=== PATIENT | male | born 1980 | race Two or more races ===

== ENCOUNTER 2025-01-24 09:15 | Emergency (ER) | payer SELFPAY ==
[~2025-01-24] VITALS: Ht 182.9 cm; Wt 101.0 kg
[2025-01-24 09:18] VITALS: BP 131/87; PULSE 87; RESP 16; TEMP 99.1; O2SAT 97
== END 2025-01-24 11:43 | disposition left against medical advice (07) ==
LOC: ER 09:15
DX: K62.89 Other specified diseases of anus and rectum (principal); Z53.21 Procedure and treatment not carried out due to patient leaving prior to being seen by health care provider

== ENCOUNTER 2025-01-25 07:21 | Emergency (ER) | payer MEDICAID, OTHER ==
[~2025-01-25] VITALS: Ht 182.9 cm; Wt 100.7 kg
[2025-01-25 07:23] VITALS: BP 145/87; PULSE 73; RESP 16; TEMP 98.5; O2SAT 97
--- NOTE | 2025-01-25 07:57 | ED.PDOC ---
GI ASSESSMENT HPI Comments This is a 44-year-old male who presents to the ED with a chief complaint of constipation for X4 days. Patient denies any medical history or this happening before. Patient reports taking laxatives and suppositories, with no relief. Denies fevers chills nausea vomiting Denies abdominal pain Denies unintentional weight loss Denies family history of colon cancer Denies blood in the stool Denies taking narcotics or iron supplements Denies a history of hypothyroidism Chief Complaint: Constipation Time Seen by MD: 07:33 Reviewed Notes: Nurses Notes, Medications, Allergies Allergies: Coded Allergies: NO KNOWN ALLERGIES (Unverified , 01/24/25) Information Source: Patient Mode of Arrival: Ambulatory Timing: Days Duration: Since onset Prehospital treatment: None Stool: Minimal Severity: Moderate Recent: None Pain Location: None Associated sign and symptoms: Constipation Past Medical History PAST MEDICAL HISTORY: Denies Surgical History: Denies all surgeries Family History Family History: Reviewed,noncontributory to illness, No family hx of Cancer, No family hx of DM, No family hx of Heart mercy, No family hx of HTN, No family hx ofKidney mercy, No family hx of Liver mercy, No family hx of Lung mercy, No family hx of Stroke Social History Smoker: Non-Smoker Alcohol: Denies ETOH Use Drugs: Denies Drug Use Lives In: Home Constitutional: denies: chills, diaphoresis, fatigue, fever, malaise, sweats, weakness, others EENTM: denies: blurred vision, double vision, ear bleeding, ear discharge, ear drainage, ear pain, ear ringing, eye pain, eye redness, hearing loss, mouth pain, mouth swelling, nasal discharge, nose bleeding, nose congestion, nose pain, photophobia, tearing, throat pain, throat swelling, voice changes, others Respiratory: denies: cough, hemoptysis, orthopnea, SOB at rest, shortness of breath, SOB with excertion, stridor, wheezing, others Cardiovascular: denies: chest pain, dizzy spells, diaphoresis, Dyspnea on exertion, edema, irregular heart beat, left arm pain, lightheadedness, palpitations, PND, syncope, others Gastrointestinal: reports: constipated; denies: abdomen distended, abdominal pain, blood streaked bowels, diarrhea, dysphagia, difficulty swallowing, hematemesis, melena, nausea, poor appetite, poor fluid intake, rectal bleeding, rectal pain, vomiting, others Genitourinary: denies: burning, dysuria, flank pain, frequency, hematuria, incontinence, penile discharge, penile sore, pain, testicle pain, testicle swelling, urgency, others Neurological: denies: dizziness, fainting, headache, left sided numbness, left sided weakness, numbness, paresthesia, pre-existing deficit, right sided numbness, right sided weakness, seizure, speech problems, tingling, tremors, weakness, others Musculoskeletal: denies: back pain, gout, joint pain, joint swelling, muscle pain, muscle stiffness, neck pain, others Integumetry: denies: bruises, change in color, change in hair/nails, dryness, laceration, lesions, lumps, rash, wounds, others Allergic/Immunocompromised: denies: Difficulty Healing, Frequent Infections, Hives, Itching, others Hematologic/Lymphatic: denies: anemia, blood clots, easy bleeding, easy bruising, swollen glands, others Endocrine: denies: excessive hunger, excessive sweating, excessive thirst, excessive urination, flushing, intolerance to cold, intolerance to heat, unexplained weight gain, unexplained weight loss, others Psychiatric: denies: anxiety, bipolar disorder, depression, hopeless, panic disorder, schizophrenia, sleepless, suicidal, others All Other Systems: Reviewed and Negative Physical Exam General Appearance: Moderate Distress, Normal HEENT: Normal ENT Inspection, Pharynx Normal, TMs Normal Neck: Full Range of Motion, Non-Tender, Normal, Normal Inspection Respiratory: Chest Non-Tender, Lungs Clear, No Accessory Muscle Use, No Respiratory Distress, Normal Breath Sounds Cardiovascular: No Edema, No JVD, No Murmur, No Gallop, Normal Peripheral Pulses, Regular Rate/Rhythm Breast Exam: Deferred Gastrointestinal: Distended, No Organomegaly, Non Tender, No Pulsatile Mass Genitalia: Deferred Pelvic: Deferred Rectal: Other (no erythema, no streaking, no fluxuence around the buttock, rectal tone intact, no pain to the perineum) Extremities: No calf tenderness, Normal capillary refill, Normal inspection, Normal range of motion, Non-tender, No pedal edema Musculoskeletal : Apperance: Normal Neurologic: Alert, lead driver II-XII nml as Tested, No Motor Deficits, Normal Affect, Normal Mood, No Sensory Deficits Cerebellar Function: Normal Reflexes: Normal Skin: Dry, Normal Color, Warm Lymphatic: No Adenopathy Was a procedure done? Was a procedure done?: No GI differential Dx Differential Diagnosis: Constipation, Gastroenteritis, Dehydration, Food Poisoning, Bacterial, Parasitic, Viral X-Ray, Labs, Meds, VS Vital Signs Date Time Temp Pulse Resp B/P (MAP) Pulse Ox O2 Delivery O2 Flow Rate FiO2 01/25/25 07:23 98.5 73 16 145/87 97 98.5 Lab Test 01/25/25 08:54 Range/Units White Blood Count 15.9 H 4.4-10.8 10^3/uL Red Blood Count 5.09 4.5-5.90 10^6/uL Hemoglobin 15.3 13.5-17.5 g/dL Hematocrit 44.8 41.0-53.0 % Mean Corpuscular Volume 88.1 80.0-100.0 fL Mean Corpuscular Hemoglobin 30.0 28.0-32.0 pg Mean Corpuscular Hemoglobin Concent 34.0 32.0-36.0 g/dL Red Cell Distribution Width 14.7 H 11.8-14.3 % Platelet Count 256 140-450 10^3/uL Mean Platelet Volume 8.5 6.9-10.8 fL Neutrophils (%) (Auto) 73.2 37.0-80.0 % Lymphocytes (%) (Auto) 15.7 10.0-50.0 % Monocytes (%) (Auto) 10.6 0.0-12.0 % Eosinophils (%) (Auto) 0.2 0.0-7.0 % Basophils (%) (Auto) 0.3 0.0-2.0 % Neutrophils # (Auto) 11.6 H 1.6-8.6 10 ^3/uL Lymphocytes # (Auto) 2.5 0.4-5.4 10 ^3/uL Monocytes # (Auto) 1.7 H 0-1.3 10 ^3/uL Eosinophils # (Auto) 0 0-0.8 10 ^3/uL Basophils # (Auto) 0.1 0-0.2 10 ^3/uL Nucleated Red Blood Cells 0.0 % Sodium Level 140 136-145 mmol/L Potassium Level 4.1 3.5-5.1 mmol/L Chloride Level 109 H 98-107 mmol/L Carbon Dioxide Level 26 20-31 mmol/L Anion Gap 5 5-15 Blood Urea Nitrogen 7 L 9-23 mg/dL Creatinine 1.44 H 0.700-1.30 mg/dL Glomerular Filtration Rate Calc 62 >90 mL/min BUN/Creatinine Ratio 4.9 L 10.0-20.0 Serum Glucose 107 H 74-106 mg/dL Calcium Level 9.7 8.7-10.4 mg/dL Lipase 28 12-53 U/L Current Medications Medications (Trade) Dose Ordered Sig/Lynnette Route Start Time Stop Time Status Last Admin Lactulose 30 ml ONCE ONCE PO 01/25/25 08:45 01/25/25 08:46 DC 01/25/25 08:48 [place] [address] Ph: [phone] DIAGNOSTIC IMAGING Diagnostic Imaging Report : [id number] Signed PATIENT: TREE TIRADO ACCT: [id number] UNIT: [id number] : 1980 LOC: ER ROOM / BED: / AGE / SEX: 44 / M ADM STATUS: REG ER SERVICE [id number] ORDERING PHYSICIAN: MALIK DAVIS NP PROCEDURE(s): ABPL - CT AB PEL WO CON-NO ORAL OR IV REASON: Constipation and rectal pain ORDER NUMBER(s): [id number], ACCESSION NUMBER(s): [id number] CLINICAL INFORMATION: 44 years old, Male; Constipation and rectal pain. TECHNIQUE: Axial CT images of the abdomen and pelvis were obtained without IV contrast. Coronal and sagittal reformatted images were obtained, reviewed, and stored. Evaluation of the parenchymal organs is limited without IV contrast. Evaluation of the bowel and mesentery is limited without oral contrast. All CT scans at this medical facility are performed using dose modulation techniques as appropriate to a performed exam including the following: Automated exposure control was utilized; adjustment of the MA and/or KV according to patient size; and use of iterative reconstruction technique. CTDIvol = 11.85 mGy DLP = 655.97 mGy-cm COMPARISON: None FINDINGS: Lung bases: Lung bases are clear. Liver: Multiple low-density lesions are seen in the liver, the largest of which are fluid density and likely benign cysts. The smaller lesions are also likely cysts, but too small to characterize. Biliary: No calcified gallstones or biliary ductal dilatation. Spleen: Unremarkable. Pancreas: Grossly unremarkable in its noncontrast enhanced appearance. Adrenal glands: Unremarkable. No mass. Kidneys: No hydronephrosis. No renal or ureteral calculi. Aorta/Vascular: Moderate atherosclerotic calcification. No abdominal aortic aneurysm. Retroperitoneum: No mass or lymphadenopathy. Bowel/mesentery: No small bowel obstruction. No free air or free fluid. Appendix is visualized and appears unremarkable. There is mild wall thickening and adjacent vascular engorgement involving the cecum, ascending colon, hepatic flexure, and transverse colon, suspected colitis in the appropriate clinical setting. There are also areas of fatty replacement in the wall of the colon, which may be sequela of previous inflammation. There is moderate stool in the more distal portions of the colon and a few scattered colonic diverticula without adjacent inflammatory changes to suggest diverticulitis. Pelvic organs: Grossly unremarkable. Bladder: Unremarkable. No mass. Abdominal wall: Small fat containing umbilical hernia. Bones: No acute fracture or suspicious intraosseous lesion. IMPRESSION: 1. Findings suggesting colitis involving the cecum, ascending colon, hepatic flexure, and transverse colon as described above. May be infectious or infl ammatory in nature. Correlate with clinical findings. 2. Additional nonacute findings as detailed above. X-Ray, Labs, Meds, VS Comment This is a 44-year-old male who presents to the ED with a chief complaint of constipation for X4 days. Patient arrives alert and oriented, ABC's intact, afebrile, vital signs stable, saturating well in room air Peripheral IV insertion+ labs were ordered. CBC was ordered to exclude anemia, blood loss, or infection. BMP was ordered to exclude electrolyte abnormalities, renal failure, dehydratio n, hyperglycemia. Additional Lipase was ordered. Diagnostic imaging, ABD CT, ordered by me and results interpreted by radiology : Colitis involving the cecum, ascending colon, hepatic flexure, and transverse colon as described above. May be infectious or inflammatory in nature. Correlate with clinical findings. This patient has elected to leave against medical advice. In my opinion, the patient has capacity to leave AMA. The patient is clinically sober, free from distracting injury, appears to have intact insight, judgment, and reason; therefore, the patient has the capacity to make decisions. I explained to the patient that these symptoms may represent a serious underlying medical condition and the patient verbalized understanding of my concerns and understands the consequences of leaving without complete evaluation. I had a discussion with the patient about their workup and results, and informed the patient what the next step in diagnosis and treatment would be, and they verbalized understanding of this as well. I explained the risks of leaving without further workup or treatment, which included reasonably foreseeable complications such as , serious injury, prolonged illness, and permanent disability. I discussed the specific benefits of additional treatment and also offered alternatives to departing AMA, such as assigning the patient a different provider or an alternate workup pathway. However, the patient declined and insisted on leaving against medical advice. I answered all of the patient's questions about their condition and I asked them to follow up with their PCP as soon as possible or return to this ER for further evaluation whenever they choose. Patient voiced understanding. Images Reviewed?: Images reviewed and evaluated by me Time of 1ST Reevaluation: 08:34 Reevaluation 1ST: Unchanged Patient Education/Counseling: Diagnosis, Treatment, Need For Follow Up Family Education/Counseling: No Family Present Medical Screening: No EMC Exist At This Time SEPSIS Sepsis Screen Date sepsis recognized/suspect: Jan 25, 2025 Time Sepsis recognized/suspect: 722 Recent Procedure: No On Antibiotic Therapy: No Respiratory Rate >20: No Heart Rate >90: No Temp<36 C (96.8 F) or >38.3 C: No SBP <90 or MAP <65 mmHG: No New Acute Mental Status Change: No Is the patient on CPAP, BIPAP,: No Physician Orders Ct Ab Pel Wo Con-No Oral Or Iv (01/25/25 07:38) Vital Signs Date Time Temp Pulse Resp B/P (MAP) Pulse Ox O2 Delivery O2 Flow Rate FiO2 01/25/25 07:23 98.5 73 16 145/87 97 98.5 Laboratory Tests Test 01/25/25 08:54 White Blood Count 15.9 10^3/uL (4.4-10.8) H Medications Medications Dose Ordered Sig/Lynnette Route Start Time Stop Time Status Last Admin Dose Admin Lactulose 30 ml ONCE ONCE PO 01/25/25 08:45 01/25/25 08:46 DC 01/25/25 08:48 Departure 1 Departure Time of Disposition: 09:53 Impression: Primary Impression: Left against medical advice Disposition: 07 LEFT AGAINST MEDICAL ADVICE Condition: Poor Additional Instructions: Follow up with PCP in 1-2 days. Take medications as prescribed. Return to the ED for any new or worsening symptoms. Discharged With: Self Critical Care Note Critical Care Time?: No Stability Stability form required: No Heart Score Heart Score: Heart Score Response (Comments) Value History N/A 0 EKG N/A 0 Age N/A 0 Risk Factors N/A 0 Troponin N/A 0 Total 0 I personally scribed for MALIK DAVIS NP ([email or web address]) on 01/25/25 at 07:57. Electronically submitted by Diamante Friend ([email or web address]). I personally scribed for MALIK DAVIS NP ([email or web address]) on 01/25/25 at 08:03. Electronically submitted by Diamante Friend ([email or web address]). I personally scribed for MALIK DAVIS NP ([email or web address]) on 01/25/25 at 08:49. Electronically submitted by Diamante Friend ([email or web address]). MALIK DAVIS NP Jan 25, 2025 07:57
--- NOTE | 2025-01-25 08:40 | DVH ---
CLINICAL INFORMATION: 44 years old, Male; Constipation and rectal pain. TECHNIQUE: Axial CT images of the abdomen and pelvis were obtained without IV contrast. Coronal and s agittal reformatted images were obtained, reviewed, and stored. Evaluation of the parenchymal organs is limited without IV contrast. Evaluation of the bowel and mesentery is limited without oral contras t. All CT scans at this medical facility are performed using dose modulation techniques as appropriat e to a performed exam including the following: Automated exposure control was utilized; adjustment of the MA and/or KV according to patient size; and use of iterative reconstruction technique. CTDIvol = 11.85 mGy DLP = 655.97 mGy-cm COMPARISON: None FINDINGS: Lung bases: Lung bases are clear. Liver: Multiple low-density lesions are seen in the liver, the largest of which are fluid density and likely benign cysts. The smaller lesions are also likely cysts, but too small to characterize. Biliary: No calcified gallstones or biliary ductal dilatation. Spleen: Unremarkable. Pancreas: Grossly unremarkable in its noncontrast enhanced appearance. Adrenal glands: Unremarkable. No mass. Kidneys: No hydronephrosis. No renal or ureteral calculi. Aorta/Vascular: Moderate atherosclerotic calcification. No abdominal aortic aneurysm. Retroperitoneum: No mass or lymphadenopathy. Bowel/mesentery: No small bowel obstruction. No free air or free fluid. Appendix is visualized and ap pears unremarkable. There is mild wall thickening and adjacent vascular engorgement involving the ce cum, ascending colon, hepatic flexure, and transverse colon, suspected colitis in the appropriate cli nical setting. There are also areas of fatty replacement in the wall of the colon, which may be sequ [place] of previous inflammation. There is moderate stool in the more distal portions of the colon and a few scattered colonic diverticula without adjacent inflammatory changes to suggest diverticulitis. Pelvic organs: Grossly unremarkable. Bladder: Unremarkable. No mass. Abdominal wall: Small fat containing umbilical hernia. Bones: No acute fracture or suspicious intraosseous lesion. IMPRESSION: 1. Findings suggesting colitis involving the cecum, ascending colon, hepatic flexure, and transverse colon as described above. May be infectious or inflammatory in nature. Correlate with clinical findin gs. 2. Additional nonacute findings as detailed above.
[2025-01-25] MEDS: LACTULOSE 20Gm/30ML SOLN PO ONE (08:48)
[2025-01-25 09:18] LABS: Hematocrit 44.8 % (41.0-53.0); Hemoglobin 15.3 g/dL (13.5-17.5); Mean Corpuscular Hemoglobin 30.0 pg (28.0-32.0); Mean Corpuscular Volume 88.1 fL (80.0-100.0); Nucleated Red Blood Cells % 0.0 %
[2025-01-25 09:25] LABS: Anion Gap 5 (5-15); Carbon Dioxide 26 mmol/L (20-31); Potassium 4.1 mmol/L (3.5-5.1); Sodium 140 mmol/L (136-145)
[2025-01-25 09:26] LABS: Calcium 9.7 mg/dL (8.7-10.4)
[2025-01-25 09:31] LABS: BUN/Creatinine Ratio 4.9 (10.0-20.0); Blood Urea Nitrogen 7 mg/dL (9-23); Chloride 109 mmol/L (98-107); Glucose 107 mg/dL (74-106)
[2025-01-25 09:43] LABS: Lipase 28 U/L (12-53)
[2025-01-28] MEDS ORDERED: BACDST PO (12:39)
== END 2025-01-25 09:56 | disposition left against medical advice (07) ==
LOC: ER 07:21
DX: K59.00 Constipation, unspecified (principal); Z79.899 Other long term (current) drug therapy
CPT/HCPCS: 36415; 74176; 80048; 83690; 85025